=== PATIENT | male | born 1955 | race Caucasian/White ===

== ENCOUNTER 2022-07-07 06:25 | Day surgery (SDC) | payer MEDICARE, OTHER ==
[~2022-07-07] VITALS: Ht 170.2 cm; Wt 96.8 kg
[~2022-07-07 06:25] MED LIST: INDOMETHACIN50 MG PO
--- NOTE | 2022-07-07 08:03 | NUR ---
07/07/22 0803 Yasmin Garcia 0800 PATIENT ARRIVES TO PACU AWAKE BUT DROWSY. DENIES PAIN. STATES HE IS A LITTLE NAUSEATED BUT IMPROVING. RESP EVEN AND UNLABORED, NC AT 2 LITERS, TURNED OFF.
--- NOTE | 2022-07-07 09:53 | OR ---
[facility] [address], [place] [address] Signed DATE OF OPERATION: 07/07/2022 SURGEON: Lety Oreilly MD PREOPERATIVE DIAGNOSES: 1. Personal history of colonic polyps in 2011 at age 55. 2. External anal skin tags. POSTOPERATIVE DIAGNOSES: 1. External anal skin tag x1. 2. 3 mm polyp at 95 cm. 3. 3 mm polyp at 5 cm. 4. 3 mm polyp at 15 cm. PROCEDURE: Colonoscopy with hot biopsy. ESTIMATED BLOOD LOSS: None. INDICATIONS: Raghav is a 66-year-old gentleman, asked to see me for followup colonoscopy. I helped him in 2011 at the age of 55 with a screening colonoscopy. He had a small 4 mm tubular adenomatous polyp removed. He had done well with Versed and fentanyl. He also has an external anal skin tag as well. He came back in 2017 at the age of 60. This was negative. Again, he did well with Versed and fentanyl. We asked him to come back in 5 years. He said he has been doing well. He has no lower GI complaints. He has no personal or family history of colon cancer or polyps. However, his father in-law in his 70s from colon cancer. He said it was awful. He said he is happy to come every five years. In the office, I gave him a pamphlet on colonoscopy. He recalls the nature of the test. There is risk including, but not limited to gas bloating, crampy abdominal pain, bleeding, perforation requiring surgery, and missed diagnosis. He recalls the need for IV conscious sedation. He had expressed understanding and wished to proceed. PROCEDURE NOTE: Raghav was taken into endoscopy suite and placed in a left lateral decubitus position. He was given IV sedation with Versed and fentanyl. A digital rectal exam was performed and this showed his external anal skin tag in the right lateral position. It is not particularly large, it will be 5 mm in length, maybe 3 or 4 mm in diameter. He had good sphincter tone. Really no external hemorrhoids. Prostate is becoming indurated. The Electronically Signed By: LETY OREILLY MD 07/07/22 0953 PATIENT NAME: RAGHAV CAMPOS OPERATIVE REPORT DATE OF : 57 REPORT #: [id number] PHYSICIAN: LETY OREILLY MD PCP: BLU ALLEN PA-C REPORT IS CONFIDENTIAL AND NOT TO BE RELEASED WITHOUT AUTHORIZATION [facility] [address], [place] [address] Signed adult colonoscope had been introduced and advanced under direct visualization of the camera. It took little extra sedation and some mild abdominal compression in order to get the camera around and down into the cecum itself. He either tends to stop breathing or he is awake and talking to us during the procedure. If he has recall of that procedure and he is uncomfortable, he could certainly have propofol which should actually be safer for him and certainly more comfortable. His prep was good. We could easily see the appendiceal orifice and the ileocecal valve. The scope was then slowly withdrawn. We took pictures throughout for photodocumentation. We removed the three polyps mentioned above with the help of hot biopsy forceps. Once in the rectum, the scope had been retroflexed and there was no additional pathology noted above the anal canal. After this, the gas was suctioned out and the colonoscope removed. Raghav tolerated the procedure quite well. RECOMMENDATIONS: I will see Raghav back in my office in 7 to 14 days to review his results. I suspect he will be on the five year plan. Lety Oreilly MD ALB/MODL /[id number] cc: AMPARO Contreras MD Copies: LETY OREILLY MD ~ Electronically Signed By: LETY OREILLY MD 07/07/22 0953 PATIENT NAME: RAGHAV CAMPOS OPERATIVE REPORT DATE OF : 57 REPORT #: [id number] PHYSICIAN: LETY OREILLY MD PCP: BLU ALLEN PA-C REPORT IS CONFIDENTIAL AND NOT TO BE RELEASED WITHOUT AUTHORIZATION
--- NOTE | 2022-07-09 16:43 | PATH ---
[facility] [address], [place] [address] Signed SPECIMEN(S): A COLON POLYP AT 95 CM SPECIMEN(S): B COLON POLYP AT 5 CM SPECIMEN(S): C RECTAL POLYP AT 15 CM SPECIMEN SOURCE: A. COLON POLYP AT 95 CM B. COLON POLYP AT 5 CM C. RECTAL POLYP AT 15 CM CLINICAL HISTORY: Personal history of colon polyp, anal skin tag. Postop: Polyps, external anal skin tag FINAL PATHOLOGIC DIAGNOSIS: A. Colon polyp at 95 cm: - Tubular adenoma (one fragment). B. Colon polyp at 5 cm: - Hyperplastic polyp (one fragment). C. Rectal polyp at 15 cm: - Hyperplastic polyp (one fragment). JVR:[id number] MICROSCOPIC EXAMINATION: Histologic sections of all submitted blocks are examined by light microscopy. These findings, together with the gross examination, support the pathologic diagnosis. GROSS DESCRIPTION: A. The specimen, labeled and designated "Raghav Harding, 1," and designated on the requisition as "colon polypectomy 95 cm," is received in formalin and consists of one álvarez soft tissue fragment, 0.2 cm. Entirely submitted in (A1). B. The specimen, labeled and designated "Raghav Harding, 2," and designated on the requisition as "colon polyp at 5 cm," is received in formalin and consists of two álvarez soft tissue fragments, ranging from 0.1 and 0.3 cm. Entirely submitted in (B1). C. The specimen, labeled and designated "Raghav Harding, 3," and designated on the requisition as "rectum polypectomy 15 cm," is received in formalin and consists of one elongated, álvarez, soft tissue fragment, 0.6 cm. Entirely submitted in (C1). AI (under the direct supervision of a pathologist) PATIENT NAME: RAGHAV HARDING PATHOLOGY DATE OF : 57 REPORT #: [id number] PHYSICIAN: TELLY REED PCP: BLU ALLEN PA-C REPORT IS CONFIDENTIAL AND NOT TO BE RELEASED WITHOUT AUTHORIZATION [facility] [address], [place] [address] Signed The Gross Description was prepared using a voice recognition system. The report was reviewed for accuracy; however, sound-alike word errors, addition and/or deletions may occur. If there is any question about this report, please contact Client Services. PERFORMING LABORATORY: The technical component was performed by [facility], [address] [place] [id number] (CLIA# [id number]). The professional interpretation was performed by [facility], [facility], [address] [facility] [place] [address] (CLIA#: [id number]). Diagnostician: Jah Chiu MD Pathologist Electronically Signed 07/09/2022 Copies: ~ PATIENT NAME: RAGHAV HARDING PATHOLOGY DATE OF : 57 REPORT #: [id number] PHYSICIAN: TELLY REED PCP: BLU ALLEN PA-C REPORT IS CONFIDENTIAL AND NOT TO BE RELEASED WITHOUT AUTHORIZATION
== END 2022-07-07 08:50 | disposition home or self-care (01) ==
LOC: DS 06:25
PROVIDERS: ATTEND Colon & Rectal Surgery
PROC: 0DBE8ZX Excision of Large Intestine, Via Natural or Artificial Opening Endoscopic, Diagnostic (ICD-10-PCS; principal; 2022-07-07 07:30)
DX: D12.6 Benign neoplasm of colon, unspecified (principal); K64.4 Residual hemorrhoidal skin tags; Z86.010 Personal history of colon polyps; K62.1 Rectal polyp; E78.5 Hyperlipidemia, unspecified; M10.9 Gout, unspecified; E55.9 Vitamin D deficiency, unspecified
CPT/HCPCS: 99153; G0500; J2250; J2405; J3010; J7121